=== PATIENT | male | born 1965 | race American Indian/Alaskan Native ===

== ENCOUNTER 2018-12-22 04:49 | Observation (INO) | payer OTHER ==
[2018-12-22 05:02] VITALS: BMI 28.6
--- NOTE | 2018-12-22 05:12 | ED PDOC ---
Arrival/HPI - General Chief Complaint: Chest Pain Time Seen by Provider: 12/22/18 04:51 Historian: Patient - History of Present Illness Narrative History of Present Illness (Text): 12/22/18 05:11 Sree Moura is a 53 year old male, whose past medical history includes prediabetes, who presents to the Emergency department complaining of chest pain. Patient states he began experiencing squeezing mid-sternal chest pain while driv ing his car yesterday. Patient notes he has experienced similar chest pain in the past but has not seen a [facility]. Patient denies any fever, chills, shortness of breath, nausea, vomiting, diarrhea, urinary symptoms, back pain, neck pain, headache, dizziness, or any other complaints. Symptom Onset: Gradual Symptom Course: Unchanged Activities at Onset: Light Context: Home Past Medical History - Provider Review Nursing Documentation Reviewed: Yes - Cardiac Hx Cardiac Disorders: Yes Hx Hypertension: Yes - Pulmonary Hx Respiratory Disorders: No - Endocrine/Metabolic Hx Endocrine Disorders: Yes Hx Diabetes Mellitus Type 2: Yes - Hematological/Oncological Hx Blood Disorders: No - Psychiatric Hx Substance Use: No (denies) Family/Social History - Physician Review Nursing Documentation Reviewed: Yes Family/Social History: Unknown Family HX Smoking Status: Light Smoker < 10 Cigarettes Daily Hx Alcohol Use: No (denies) Hx Substance Use: No (denies) Allergies/Home Meds Allergies/Adverse Reactions: Allergies No Known Allergies Allergy (Unverified 12/22/18 05:12) Review of Systems - Physician Review All systems were reviewed & negative as marked: Yes - Review of Systems Constitutional: Normal. absent: Fevers Eyes: Normal ENT: Normal Respiratory: Normal. absent: SOB, Cough Cardiovascular: Chest Pain Gastrointestinal: Normal. absent: Abdominal Pain, Diarrhea, Nausea, Vomiting Genitourinary Male: Normal. absent: Dysuria, Frequency, Hematuria, Urinary Output Changes Musculoskeletal: Normal. absent: Back Pain, Neck Pain Skin: Normal. absent: Rash Neurological: Normal. absent: Headache, Dizziness Endocrine: Normal Hemo/Lymphatic: Normal Psychiatric: Normal Physical Exam Vital Signs Reviewed: Yes Vital Signs Temp Pulse Resp BP Pulse Ox 12/22/18 05:00 97.9 F 112 H 18 162/107 H 100 Temperature: Afebrile Blood Pressure: Normal Pulse: Regular Respiratory Rate: Normal Appearance: Positive for: Well-Appearing, Non-Toxic, Comfortable Pain Distress: None Mental Status: Positive for: Alert and Oriented X 3 - Systems Exam Head: Present: Atraumatic, Normocephalic Pupils: Present: PERRL Extroacular Muscles: Present: EOMI Conjunctiva: Present: Normal Mouth: Present: Moist Mucous Membranes Neck: Present: Normal Range of Motion Respiratory/Chest: Present: Clear to Auscultation, Good Air Exchange. No: Respiratory Distress, Accessory Muscle Use Cardiovascular: Present: Regular Rate and Rhythm, Normal S1, S2. No: Murmurs Abdomen: No: Tenderness, Distention, Peritoneal Signs Back: Present: Normal Inspection Upper Extremity: Present: Normal Inspection. No: Cyanosis, Edema Lower Extremity: Present: Normal Inspection. No: Edema Neurological: Present: GCS=15, CN II-XII Intact, Speech Normal Skin: Present: Warm, Dry, Normal Color. No: Rashes Psychiatric: Present: Alert, Oriented x 3, Normal Insight, Normal Concentration Medical Decision Making ED Course and Treatment: 12/22/18 05:11 Impression: 53 year old male complaining of chest pain. Plan: -- EKG -- Chest X-ray -- Labs, cardiac enzymes, D-dimer -- Aspirin -- Reassess and disposition Prior Visits: Notes and results from previous visits were reviewed. Progress Notes: Reviewed EKG, NSR at [address]-segment elevations or depressions, no T-wave inversions, normal intervals. 12/22/18 06:00 Reviewed Chest X-ray, shows no acute processes. 12/22/18 06:23 Case was discussed with who accepts to his service.Request on consult. - EKG Interpretation Interpreted by ED Physician: Yes Type: 12 lead EKG - Scribe Statement The provider has reviewed the documentation as recorded by the [place] Provider Scribe Attestation: All medical record entries made by the Scribstephen were at my direction and personally dictated by me. I have reviewed the chart and agree that the record accurately reflects my personal performance of the history, physical exam, medical decision making, and the department course for this patient. I have also personally directed, reviewed, and agree with the discharge instructions and disposition. Disposition/Present on Arrival - Present on Arrival Any Indicators Present on Arrival: No History of DVT/PE: No History of Uncontrolled Diabetes: No Urinary Catheter: No History of Decub. Ulcer: No History Surgical Site Infection Following: None - Disposition Have Diagnosis and Disposition been Completed?: Yes Diagnosis: Chest pain Disposition: HOSPITALIZED Disposition Time: 06:23 Patient Plan: Discharge Condition: GOOD Discharge Instructions (ExitCare): Chest Pain (ED) Forms: [employer] ([place])
[2018-12-22 05:33] LABS: HEMOGLOBIN 14.8 g/dL (14.0-18.0); MEAN CELL VOLUME 89.9 fl (80.0-105.0); MEAN CORPUSCULAR HEMOGLOBIN 30.5 pg (25.0-35.0); MEAN CORPUSCULAR HGB CONC 33.9 g/dl (31.0-37.0); MEAN PLATELET VOLUME 10.2 fl (7.0-11.0); RBC 4.86 10^6/uL (3.5-6.1); RED CELL DISTRIBUTION WIDTH 12.6 % (11.5-14.5); WHITE BLOOD COUNT 7.3 10^3/uL (4.5-11.0)
[2018-12-22] MEDS ORDERED: Nitroglycerin 2% Ointment Foilpak UD TOP STA (05:44)
[2018-12-22 05:49] LABS: INR 1.11; PARTIAL THROMBOPLASTIN TIME 33.2 Seconds (26.9-38.3); PROTHROMBIN TIME 12.5 SECONDS (9.4-12.5)
[2018-12-22 05:52] LABS: ALB/GLOB RATIO 1.3 (1.1-1.8); ALBUMIN 4.8 g/dL (3.0-4.8); ALT/SGPT 20 U/L (7-56); AST/SGOT 29 U/L (17-59); BLOOD UREA NITROGEN 10 mg/dL (7-21); CALCIUM 9.8 mg/dL (8.4-10.5); GFR NON-AFRICAN AMERICAN > 60
[2018-12-22 05:55] LABS: D DIMER < 200 ng/mlDDU (0-243)
[2018-12-22 06:01] LABS: TROPONIN I < 0.01 ng/mL
[2018-12-22 06:53] LABS: CK-MB 1.2 ng/mL (0.0-3.6)
[2018-12-22] MEDS: Enoxaparin 40 mg Syringe SC SCH (10:39)
--- NOTE | 2018-12-22 12:33 | RAD ---
Date of service: 12/22/2018 HISTORY: chest pain COMPARISON: No prior. FINDINGS: LUNGS: No active pulmonary disease. PLEURA: No significant pleural effusion identified, no pneumothorax apparent. CARDIOVASCULAR: No aortic atherosclerotic calcification present. Normal cardiac size. No pulmonary vascular congestion. OSSEOUS STRUCTURES: No significant abnormalities. VISUALIZED UPPER ABDOMEN: Normal. OTHER FINDINGS: None. IMPRESSION: No active disease.
[2018-12-22 14:58] LABS: TROPONIN I < 0.01 ng/mL
[2018-12-22 15:12] LABS: CK-MB 1.2 ng/mL (0.0-3.6)
--- NOTE | 2018-12-22 17:13 | CARD ---
APPROVED REPORT Date of service: 12/22/2018 EKG Measurement Heart [id number] <Conclusion> Normal sinus rhythm Normal ECG
--- NOTE | 2018-12-22 20:36 | CON ---
DATE: 12/22/2018 CARDIOLOGY CONSULTATION REASON FOR CONSULTATION: Cardiac evaluation admitted with the chest pain. BRIEF CLINICAL HISTORY: This is a 53-year-old male with no significant past medical history, questionable history of prediabetic, came in with complained of the chest pain. The patient feels that yesterday he had a chest pain and mild discomfort associated with the shortness of breath similar episode happened in May, since then the patient remains stable, though recently complained of some , but no chest pain except happened yesterday. PAST MEDICAL HISTORY: Significant for prediabetic, currently on no medication. FAMILY HISTORY: The patient was not sure about any significant family history of coronary artery disease (unknown). SOCIAL HISTORY: Denies any history of alcohol abuse, but history of smoke, he smokes half a pack a day before now cut down to just only 1 to 2 cigar everyday. PAST SURGICAL HISTORY: Nothing significant, no history of surgery. CURRENT MEDICATION: None. ALLERGIES: NO KNOWN DRUG ALLERGY. PHYSICAL EXAMINATION GENERAL: As follows; height of the patient 6 feet 1 inches, weight of the patient 220 pounds, and body mass index 32 kg/m2. VITAL SIGNS: Temperature afebrile, heart rate 77, and blood pressure 142/70. HEENT: PERRLA. Extraocular muscles intact. NECK: Supple. No carotid bruits or thyromegaly. CHEST: Clear to auscultation. HEART: S1 and S2 regular. ABDOMEN: Soft. EXTREMITIES: Clubbing and cyanosis negative. LABORATORY DATA: EKG shows normal sinus rate of 70, no acute ST-T changes noted. Blood workup; WBC 7.3, hemoglobin 14.8, hematocrit 43.7, platelet count 234. Chemistry shows sodium 134, potassium 3.7, chloride 90, carbon dioxide 20, anion gap of 12, BUN 10, and creatinine 0.8. Troponin remains 0.01 negative. IMPRESSION: A 53-year-old male with no significant history admitted with some shortness of breath and history of chest pain, rule out underlying coronary artery disease, rule out acute myocardial infarction. So far, no evidence of acute myocardial infarction, first troponin is negative as of this morning. RECOMMENDATION: We will follow another troponin and if the troponin remains negative, we will schedule his stress test and echo in the morning, lipid profile, TSH, hemoglobin A1C, also add DVT prophylaxis, baby aspirin everyday and monitor the blood pressure, heart rate, further recommendation dependable hospital course. We will also add low dose of beta-josh because the patient's blood pressure 142/70, give the low dose of beta-josh and continue aspirin. We will get the lipid profile, TSH, hemoglobin A1C. Repeat another troponin. If the troponin remains negative, we will scheduled for his stress test and echo. Further recommendation depend on the hospital course. We will follow with you. Thank you Dr. Cobb, for providing us the opportunity in taking care of the patient, Moura Sree. Robbi Jimenez MD
[2018-12-22] MEDS: Insulin Reg-LOW-Coverage SC SCH (21:25)
--- NOTE | 2018-12-22 22:21 | HP ---
DATE OF EXAM: 12/22/2018 CHIEF COMPLAINT: Sree Moura is a 53-year-old male, who came into the hospital with main complaint of chest pain. HISTORY OF PRESENT ILLNESS: A 53-year-old male who has been having chest pain intermittently, comes for a few minutes, comes and goes that seems to be getting more frequent and worse. Patient came to the ER. Denies any dizziness, radiation of the pain to the shoulder, neck, or back. It seems that the pain happened in the past a few months, but it went away quickly. He did mention that the pain may come with exertions. Otherwise, no nausea, no vomiting and no other complaints. PAST MEDICAL HISTORY: Insignificant. MEDICATIONS: None. ALLERGIES: NONE. FAMILY HISTORY: None. No cardiac history in the family. SOCIAL HISTORY: He lives by himself. He smokes less than 10 cigarettes a day. Denies any alcohol or drugs. REVIEW OF SYSTEMS: Negative except his current problems. PHYSICAL EXAMINATION: VITAL SIGNS: Temperature 98.6, heart rate 77, blood pressure 142/70, and respirations 18. HEAD AND NECK: Normal. No JVD. No thyromegaly. CHEST: Clear bilaterally. CARDIAC: First sound and second sound normal. No murmur, rub, or gallop. ABDOMEN: Soft, obese, and nontender. EXTREMITIES: No edema. NEUROLOGIC: Normal. LABORATORY DATA: White count 7.3, hemoglobin 14.8, hematocrit 43.7, and platelets 234. Chemistry; sodium 134, potassium 3.7, chloride 98, bicarbonate 28, BUN 10, creatinine 0.8, blood sugar 230. Liver function test is normal. Troponin was negative. PTT and PT was normal. Chest x-ray; no active disease. EKG is normal. IMPRESSION AND PLAN: This is a 53-year-old male, has been having intermittent chest pain related to exertions. We will admit the patient for observations. We will give him aspirin, beta-blockers, and Lovenox at bedtime. We will get Cardiology consult. Repeat cardiac enzymes. We will follow up clinically. Nadeem Cobb MD
[2018-12-23 05:51] VITALS: BP 114/77; PULSE 83; RESP 18; O2SAT 97
[2018-12-23 06:06] LABS: BASO # 0.02 K/mm3 (0.0-2.0); BASO % 0.3 % (0.0-3.0); EOS # 0.2 (0.0-0.7); EOS % 3.2 % (1.5-5.0); HEMOGLOBIN 14.7 g/dL (14.0-18.0); LYMPH # 2.3 (1.2-3.4); LYMPH % 30.2 % (22.0-35.0); MEAN CELL VOLUME 90.6 fl (80.0-105.0); MEAN CORPUSCULAR HEMOGLOBIN 30.2 pg (25.0-35.0); MEAN CORPUSCULAR HGB CONC 33.3 g/dl (31.0-37.0); MONO # 0.7 (0.1-0.6); MONO % 9.1 % (1.0-6.0); RBC 4.87 10^6/uL (3.5-6.1); RED CELL DISTRIBUTION WIDTH 12.7 % (11.5-14.5); WHITE BLOOD COUNT 7.5 10^3/uL (4.5-11.0)
[2018-12-23 06:30] LABS: LDL CHOLESTEROL 98 mg/dL (0-129)
[2018-12-23 06:36] LABS: ALB/GLOB RATIO 1.3 (1.1-1.8); ALBUMIN 4.3 g/dL (3.0-4.8); ALT/SGPT 15 U/L (7-56); AST/SGOT 23 U/L (17-59); BLOOD UREA NITROGEN 14 mg/dL (7-21); CALCIUM 9.4 mg/dL (8.4-10.5); GFR NON-AFRICAN AMERICAN > 60; HDL CHOLESTEROL 32 mg/dL (29-60)
[2018-12-23 07:26] VITALS: TEMP 98
[2018-12-23] MEDS: Insulin Reg-LOW-Coverage SC SCH ×2 (07:30→11:45)
[2018-12-23] MEDS: Enoxaparin 40 mg Syringe SC SCH ×2 (09:04→11:54)
--- NOTE | 2018-12-23 14:04 | PN ---
DATE: 12/23/2018 REASON FOR CONSULTATION AND FOLLOWUP: Cardiac evaluation, admitted with chest pain. SUBJECTIVE: The patient denies any chest pain, shortness of breath, or any palpitation. OBJECTIVE: Not in apparent distress. PHYSICAL EXAMINATION: VITAL SIGNS: Temperature afebrile, heart rate 83, and blood pressure 114/77. HEENT: PERRLA. Extraocular muscles intact. NECK: Supple. No carotid bruit or thyromegaly. CHEST: Clear to auscultation. HEART: S1 and S2 regular. ABDOMEN: Soft. EXTREMITIES: Clubbing and cyanosis negative. LABORATORY DATA: Blood workup; WBC 7.5, hemoglobin 14.2, hematocrit 44.1, and platelet count 229. Chemistry shows sodium 145, potassium 4.3, chloride 102, carbon dioxide 28, anion gap of 10, BUN 14, and creatinine 0.8. Troponin remain 0.01, negative. TSH 1.08, triglycerides 655, total cholesterol 261, LDL 98, HDL 32. IMPRESSION: This 53-year-old male with no significant past medical history admitted with chest pain, hypertriglyceridemia, so far no evidence of acute myocardial infarction. Troponin remains negative. RECOMMENDATIONS: The patient is going for a stress test and echo. The patient has hypertriglyceridemia. We will start Lopid 600 p.o. b.i.d. Continue baby aspirin. Continue DVT prophylaxis. We will get echo and assess further recommendation. After the stress test, we will follow up with you. Mentioned to the patient complete abstinence of alcohol and increase Lopid 600 p.o. b.i.d. for hypertriglyceridemia. Further recommendation after the stress test. Thank you Dr. Cobb, for providing us the opportunity in taking care of the patient, Sree Moura. Robbi Jimenez MD
--- NOTE | 2018-12-23 15:41 | CARD ---
APPROVED REPORT Date of service: 12/23/2018 Protocol: BLAIRE Test Type: Sestamibi Stress Test Attending Physician: Dr. Robbi Liu Referring Physician: Dr. Nadeem Cobb Test Indications: Chest Pain Height:6 ft 1 in Weight:220lbs Medications: aspirin, lovenox, lopressor Medical History: 53 year old male with h/o htn and diabtes Target HR: 168 bpm Resting ECG: RSR. Resting Heart Rate: 100 bpm Resting Blood Pressure: 120/64mmHg Submaximum (85%): 143 bpm POST EXERCISE Reason for Termination: Fatigue Target HR: No Max HR: 142 bpm 86% of Maximum Predicted HR: 168 bpm Exercise duration: 11:00 min:sec, 4 Stage Exercise capacity: 13.2METs Max Blood Pressure: 142/88mmHg Blood Pressure response to exercise: normal resting BP - appropriate response Heart Rate response to exercise: appropriate Chest Pain: Yes, Very Mild Chest Pain in Last Stage of Stress Test. Angina index: 0 Arrhythmia: No, none ST Change: No, none Deviation: 0 mm TEST SUMMARY [id number]:170.00.01.075/.0. [id number]/64.0. EXERCISESTAGE 103:[id number]/84.0. EXERCISESTAGE 203:[id number]/88.0. EXERCISESTAGE 303:[id number]/88.0. EXERCISESTAGE 402:[id number]/.0. [id number]:050.00.01.0./.0. INTERPRETATION Stress EKG Conclusion: MYOVIEW NUCLEAR STRESS TEST STOPPED AFTER 11 MINUTES OF BLAIRE PROTOCOL DUE TO FATIGUE. PATIENT FELT SLIGHT CHEST DISCOMFORT IN LAST STAGE OF STRESS TEST. NO ST-T CHANGES. NUCLEAR SCAN REPORT TO FOLLOW. Signed by Robbi Liu Electronically Approved: 12/23/2018 12:21:33 EXAM: Myocardial Perfusion REST/STRESS Stress Test Type: Exercise Treadmill Imaging Protocol The imaging protocol used to acquire images was Rest Tc-99m/stress Tc-99m 1 day Rest Spect myocardial perfusion imaging was performed in supine position 45 minutes following the injection of 10.9 mCi of Tc-99 Myoview. At peak stress, the patient was injected intravenously with 30.2mCi of Tc-99 tetrofosmin after an exercise time of 11 minutes and 00 seconds. Gated Stress Spect was performed 65 minutes after intravenous Tc-99 Myoview injection. The images were gated to evaluate regional wall motion and calculate ventricular ejection fraction.Images were reconstructed using backfilter projection method in short horizontal and verticle long axis. Spect slices were generated. LV Perfusion The quality of the study is good. The left ventricle is mildly enlarged in size. The right ventricle is unremarkable. The lung uptake is normal. The distribution of tracer reveals moderately and diffusely decreased perfusion in the inferior wall on the stress study. The remainder of the LV myocardium is unremarkable. The rest myocardial perfusion study shows no significant change. Wall Motion Wall motion study shows good contractility of the left ventricle. LVEF = 54%. Conclusion 1. Essentially normal SPECT myocardial perfusion study. 2. Fixed, inferior defect is most likely due to diaphrgmatic attenuation. 3. Normal gated wall motion and thicknening of the left ventricle.
--- NOTE | 2018-12-24 03:19 | DS ---
HOSPITAL COURSE: The patient was admitted with chest pain, seen by general cargo clerk. The patient had a stress test done, results still pending. He also had an echocardiogram, stress test. Myocardial perfusion test shows normal myocardial stress test with normal wall motion abnormalities and also the patient found to have diabetes and hemoglobin A1c was 10.4. The patient got some diabetic educations and was given metformin 500 b.i.d. Blood sugar was in the 230. The patient advised to watch low-carbohydrate diet, dietary consult and diabetic education was offered plus diabetic machine has been offered to the patient. The patient also had hypertriglyceridemia, probably related to uncontrolled diabetes and was given Lopid 600 b.i.d. and advised to watch his carbohydrates. The patient has cardiac enzyme negative. He is hemodynamically stable. He will follow up with his primary doctor . PHYSICAL EXAMINATION: VITAL SIGNS: Temperature 98, heart rate 86, blood pressure 114/77, respiration 18, sat 97%. LABORATORY DATA: Sodium 135, potassium 4.3, chloride 102, bicarbonate 28, BUN 14, creatinine 0.8, hemoglobin A1c 10.4. Liver function test is normal. CBC was normal. DISCHARGE DIAGNOSES: 1. Chest pain, noncardiac. 2. Diabetes, new onset, seems to be going on for a few months, type 2. 3. Probably anxiety assurance. 4. Overweight. BMI 28.6. Advised to watching his diet and low-carbohydrate with new diabetes diagnosis. PLAN: We will continue current medications. The patient was given metoprolol 25 b.i.d., baby aspirin once a day, metformin b.i.d., Lopid 600 b.i.d. Follow up in the office within a week in my office or with his primary care doctor. Nadeem Cobb MD
--- NOTE | 2018-12-24 19:10 | CARD ---
APPROVED REPORT Date of service: 12/23/2018 EXAM: Two-dimensional and M-mode echocardiogram with Doppler and color Doppler. INDICATION Chest Pain LVFX 2D DIMENSIONS Left Atrium (2D)3.2 (1.6-4.0cm)IVSd1.2 (0.7-1.1cm) LVDd4.6 (3.9-5.9cm)PWd1.2 (0.7-1.1cm) LVDs3.4 (2.5-4.0cm)FS (%) 26.6 % LVEF (%)52.1 (>50%) M-Mode DIMENSIONS Aortic Root3.40 (2.2-3.7cm)Aortic Cusp Exc.1.90 (1.5-2.0cm) Aortic Valve AoV Peak Zoetcfch303.0cm/Mike Peak GR.7mmHg Mitral Valve MV E Hmuemsyc22.2cm/sMV A Xfgvntjv41.5cm/sE/A ratio0.8 TDI Lateral E' Peak V7.80cm/sMedial E' Peak V6.34cm/sE/Lateral E'8.0 E/Medial E'9.8 Pulmonary Valve PV Peak Zmrafutl69.7cm/sPV Peak Grad.1mmHg Tricuspid Valve TR Peak [id number]/sRAP [id number] Peak Gr.16mmHg [id number] LEFT VENTRICLE The left ventricle is normal size. There is borderline to mild concentric left ventricular hypertrophy. Left ventricle systolic function is low normal.EF-50% There is normal LV segmental wall motion. Transmitral Doppler flow pattern is Grade III-reversible restrictive diastolic dysfunction. No left ventricle thrombus noted on this study. There is no ventricular septal defect visualized. There is no left ventricular aneurysm. There is no mass noted in the left ventricle. RIGHT VENTRICLE The right ventricle is normal size. There is normal right ventricular wall thickness. The right ventricular systolic function is normal. ATRIA The left atrium size is normal. The right atrium size is normal. The interatrial septum is intact with no evidence for an atrial septal defect. AORTIC VALVE The aortic valve is thickened but opens well. No aortic regurgitation is present. There is no aortic valvular stenosis. There is no aortic valvular vegetation. MITRAL VALVE The mitral valve is thickened but opens well. Mitral regurgitation is trace. There is no mitral valve stenosis. There is no evidence of mitral valve prolapse. TRICUSPID VALVE The tricuspid valve leaflets are thickened , but open well. There is trace to mild tricuspid regurgitation.RVSP-26 mmof hg. There is no tricuspid valve stenosis. There is no tricuspid valve prolapse or vegetation. PULMONIC VALVE The pulmonary valve is normal in structure. There is trace pulmonic valvular regurgitation. There is no pulmonic valvular stenosis. GREAT VESSELS The aortic root is normal in size. The ascending aorta is normal in size. The pulmonary artery is normal. The IVC is normal in size and collapses >50% with inspiration. PERICARDIAL EFFUSION There is no pleural effusion. There is a trace pericardial effusion. <Conclusion> Normal chamber Size. EF-50% Mitral regurgitation is trace. There is trace to mild tricuspid regurgitation.RVSP-26 mmof hg. There is a trace pericardial effusion. The IVC is normal in size and collapses >50% with inspiration. No Vegetation or thrombus noted.
== END 2018-12-23 13:24 | disposition home or self-care (01) ==
LOC: ED 04:49 → ERH 06:24 → 2RNO 10:58
PROVIDERS: ADMIT Internal Medicine; ATTEND Internal Medicine
DX: R07.9 Chest pain, unspecified (principal); E11.65 Type 2 diabetes mellitus with hyperglycemia; E78.1 Pure hyperglyceridemia; E66.3 Overweight; Z68.28 Body mass index [BMI] 28.0-28.9, adult; F17.210 Nicotine dependence, cigarettes, uncomplicated; F41.9 Anxiety disorder, unspecified; I10 Essential (primary) hypertension
CPT/HCPCS: 36415; 71045; 78452; 80053; 80061; 82550; 82553; 83036; 83615; 83735; 84100; 84443; 84484; 85025; 85027; 85378; 85610; 85730; 93005; 93017; 93306; 96372; 99285; A9502; G0378; J1650